=== PATIENT | male | born 1965 | race Caucasian/White ===

== ENCOUNTER 2019-10-20 20:16 | Inpatient (IN) | payer MEDICAID ==
[~2019-10-20] VITALS: Ht 167.6 cm; Wt 79.4 kg
[2019-10-20] MEDS ORDERED: IBUPROFEN 600MG TABLET PO ONE (21:45)
[2019-10-20 23:42] LABS: BASOPHILS % 1.2 % (0.0-2.0); EOSINOPHILS % 5.5 % (0.0-5.0); HEMATOCRIT. 32.2 % (42.0-52.0); HEMOGLOBIN. 10.7 g/dL (14.0-18.0); LYMPHOCYTES % 16.2 % (20.0-50.0); MEAN CORPUSCULAR HEMOGLOBIN 27.8 pg (28.0-32.0); MEAN CORPUSCULAR VOLUME 84.1 fL (80.0-94.0); MEAN PLATELET VOLUME 8.4 fl (7.4-10.4); MONOCYTES % 8.7 % (2.0-8.0); NEUTROPHILS % 68.4 % (40.0-76.0); PLATELET 307 x1000/uL (130-400); RED BLOOD CELL COUNT 3.83 mill/uL (4.7-6.1); RED CELL DISTRIBUTION WIDTH 17.4 % (11.6-14.6)
[2019-10-20 23:47] LABS: CHLORIDE 109 mEq/L (98-107)
[2019-10-20 23:51] LABS: ETHANOL BLOOD < 10 mg/dL
[2019-10-21] MEDS ORDERED: CALCIUM CHLORIDE 1GM/10ML SYR IV SCH (00:15)
[2019-10-21] MEDS ORDERED: SODIUM POLYSTYRENE SULFONATE 15 G/60 ML BOT PO SCH (00:15)
[2019-10-21] MEDS ORDERED: INSULIN REGULAR (HUMULIN R) 300UNITS/3ML IV SCH (00:15)
[2019-10-21] MEDS ORDERED: DEXTROSE 50% WATER 50ML SYRINGE IV SCH ×2 (00:15)
[2019-10-21] MEDS ORDERED: DEXT 5%/0.9% NACL 1,000 ML IV ONE (00:45)
[2019-10-21] MEDS: SODIUM BICARBONATE 8.4% 1 MEQ/ML 50ML SYR IV SCH ×2 (00:46→00:47)
[2019-10-21 01:12] LABS: *AMPHETAMINES SCREEN URINE NEGATIVE (NEGATIVE); *BARBITURATES SCREEN URINE NEGATIVE (NEGATIVE); *BENZODIAZEPINES SCREEN URINE PRESUMTIVE POSITIVE (NEGATIVE); *COCAINE SCREEN URINE NEGATIVE (NEGATIVE)
[2019-10-21 01:13] LABS: CANNABINOID URINE SCREEN NEGATIVE (NEGATIVE); METHADONE URINE SCREEN NEGATIVE (NEGATIVE); OPIATES URINE SCREEN NEGATIVE (NEGATIVE); PHENCYCLIDINE URINE SCREEN NEGATIVE (NEGATIVE)
[2019-10-21] MEDS ORDERED: METOCLOPRAMIDE HCL 10MG/2ML VIAL IV PRN (08:45)
[2019-10-21] MEDS ORDERED: ACETAMINOPHEN 325MG TABLET PO PRN (08:45)
[2019-10-21 08:58] LABS: CHLORIDE 112 mEq/L (98-107)
[2019-10-21] MEDS ORDERED: AZITHROMYCIN 500 MG TABLET PO NR (09:45)
[2019-10-21] MEDS: ASPIRIN 81MG TABLET PO SCH (09:52)
[2019-10-21] MEDS: AMLODIPINE 5MG TABLET PO SCH ×2 (09:52→21:41)
[2019-10-21] MEDS: ENOXAPARIN 30MG/0.3ML SYR SUBCUT SCH (11:00)
[2019-10-21] MEDS ORDERED: DEXTROSE 50% WATER 50ML SYRINGE IV STA ×2 (11:04)
[2019-10-21] MEDS: DEXT 5%/0.45% NACL 1000ML 1,000 ML IV SCH (11:10)
[2019-10-21] MEDS ORDERED: DEXT 10%/0.45% NACL 1,000 ML IV ONE (11:30)
[2019-10-21] MEDS: BENZONATATE 100MG CAPSULE PO PRN (11:51)
[2019-10-21 15:15] VITALS: BP 171/87
[2019-10-21] MEDS: DEXTROSE 10% WATER 500 ML IV SCH (16:00)
[2019-10-21] MEDS: CLONIDINE 0.1MG TABLET PO PRN (16:18)
[2019-10-21] MEDS: THIAMINE HCL 100MG TABLET PO SCH (17:59)
[2019-10-21] MEDS ORDERED: ALBUTEROL 6.7GM HFA INHALER ORI PRN (18:00)
[2019-10-21] MEDS ORDERED: SODIUM POLYSTYRENE SULFONATE 15 G/60 ML BOT PO NR (18:00)
[2019-10-21] MEDS ORDERED: GUAIFENESIN-DM 200MG-20MG/10ML UDC PO PRN (18:00)
[2019-10-21 20:00] VITALS: BP 158/101
[2019-10-21] MEDS: CEFTRIAXONE 1 G PREMIX 50 ML IV SCH (21:40)
[2019-10-21] MEDS: GUAIFENESIN 600MG ER TABLET PO SCH (21:41)
[2019-10-21] MEDS: ASCORBIC ACID 500 MG TABLET PO SCH (21:41)
[2019-10-21] MEDS: HYDRALAZINE HCL 50MG TABLET PO SCH (22:04)
[2019-10-22] VITALS: BP 153/75
[2019-10-22] MEDS: IPRATROPIUM/ALBUTEROL 0.5-3(2.5)MG/3ML NEB HHN SCH (01:59)
[2019-10-22] MEDS: DEXTROSE 10% WATER 500 ML IV SCH ×2 (03:02→12:00)
[2019-10-22] MEDS: DEXT 5%/0.45% NACL 1000ML 1,000 ML IV SCH (03:09)
[2019-10-22 04:00] VITALS: BP 154/67
[2019-10-22] MEDS: BENZONATATE 100MG CAPSULE PO PRN (05:40)
[2019-10-22] MEDS: HYDRALAZINE HCL 50MG TABLET PO SCH (05:45)
[2019-10-22] MEDS: BLOOD SUGAR DIAGNOSTIC STRIP TEST SCH ×4 (06:29→21:03)
[2019-10-22 08:00] VITALS: BP 152/75
[2019-10-22] MEDS ORDERED: AZITHROMYCIN 500 MG TABLET PO SCH (09:00)
[2019-10-22] MEDS ORDERED: ZINC SULFATE 220 MG ( 50 ) CAPSULE PO SCH (09:00)
[2019-10-22] MEDS: THIAMINE HCL 100MG TABLET PO SCH (09:30)
[2019-10-22] MEDS: ENOXAPARIN 30MG/0.3ML SYR SUBCUT SCH (09:30)
[2019-10-22] MEDS: ASPIRIN 81MG TABLET PO SCH (09:30)
[2019-10-22] MEDS: AZITHROMYCIN 250 MG TABLET PO SCH (09:31)
[2019-10-22] MEDS: AMLODIPINE 5MG TABLET PO SCH ×2 (09:31→20:55)
[2019-10-22] MEDS: ASCORBIC ACID 500 MG TABLET PO SCH (09:31)
[2019-10-22] MEDS: GUAIFENESIN 600MG ER TABLET PO SCH ×2 (09:32→20:54)
[2019-10-22] MEDS: HYDRALAZINE HCL 100MG TABLET PO SCH ×2 (14:58→22:22)
[2019-10-22] MEDS ORDERED: IPRATROPIUM/ALBUTEROL 0.5-3(2.5)MG/3ML NEB HHN PRN (15:30)
[2019-10-22 15:40] LABS: EOSINOPHILS % 8.4 % (0.0-5.0); HEMOGLOBIN. 10.2 g/dL (14.0-18.0); LYMPHOCYTES % 16.7 % (20.0-50.0); MEAN CORPUSCULAR HEMOGLOBIN 27.8 pg (28.0-32.0); MEAN CORPUSCULAR VOLUME 84.6 fL (80.0-94.0); MONOCYTES % 9.7 % (2.0-8.0); NEUTROPHILS % 64.2 % (40.0-76.0); PLATELET 243 x1000/uL (130-400); RED BLOOD CELL COUNT 3.67 mill/uL (4.7-6.1); RED CELL DISTRIBUTION WIDTH 17.9 % (11.6-14.6)
[2019-10-22] MEDS ORDERED: ALBU18HF2 IH (15:57)
[2019-10-22] MEDS ORDERED: HYDR100T26 PO (15:57)
[2019-10-22] MEDS ORDERED: BENZ-16 MT (15:57)
[2019-10-22] MEDS ORDERED: AMLO5TAB88 PO (15:57)
[2019-10-22 16:00] VITALS: BP 176/84
[2019-10-22] MEDS: CLONIDINE 0.1MG TABLET PO PRN (17:05)
[2019-10-22 18:30] VITALS: BP 150/78
[2019-10-22 20:00] VITALS: BP 157/82
[2019-10-22] MEDS: CEFTRIAXONE 1 G PREMIX 50 ML IV SCH (22:14)
[2019-10-23] VITALS: BP 159/81
[2019-10-23] MEDS: DEXTROSE 10% WATER 500 ML IV SCH ×2 (00:13→08:00)
[2019-10-23 04:00] VITALS: BP 121/76
[2019-10-23] MEDS: HYDRALAZINE HCL 100MG TABLET PO SCH ×2 (05:32→13:00)
[2019-10-23] MEDS: DEXT 5%/0.45% NACL 1000ML 1,000 ML IV SCH (06:35)
[2019-10-23] MEDS: BLOOD SUGAR DIAGNOSTIC STRIP TEST SCH ×3 (06:35→17:11)
[2019-10-23 08:00] VITALS: BP 147/80
[2019-10-23] MEDS: AMLODIPINE 5MG TABLET PO SCH (09:20)
[2019-10-23] MEDS: ASPIRIN 81MG TABLET PO SCH (09:20)
[2019-10-23] MEDS: GUAIFENESIN 600MG ER TABLET PO SCH (09:20)
[2019-10-23] MEDS: ENOXAPARIN 30MG/0.3ML SYR SUBCUT SCH (09:21)
[2019-10-23] MEDS: AZITHROMYCIN 250 MG TABLET PO SCH (09:21)
[2019-10-23] MEDS: IPRATROPIUM/ALBUTEROL 0.5-3(2.5)MG/3ML NEB HHN SCH ×2 (09:44→15:56)
[2019-10-23 12:00] VITALS: BP 164/87
[2019-10-23 16:00] VITALS: BP 135/70
[2019-10-23 17:12] VITALS: BP 135/71
== END 2019-10-23 17:31 | disposition home or self-care (01) | DRG 720 ==
LOC: ER 20:16 → 7WST 10-21 00:47 → EDBEDREQSVC 10-21 09:01 → ENRESERV 10-21 13:35 → 6EST 10-22 14:13
PROVIDERS: ADMIT Internal Medicine; ATTEND Internal Medicine
DX: A41.89 Other specified sepsis (principal); J96.00 Acute respiratory failure, unspecified whether with hypoxia or hypercapnia; N17.9 Acute kidney failure, unspecified; E11.22 Type 2 diabetes mellitus with diabetic chronic kidney disease; E11.649 Type 2 diabetes mellitus with hypoglycemia without coma; E44.1 Mild protein-calorie malnutrition; E87.8 Other disorders of electrolyte and fluid balance, not elsewhere classified; E78.5 Hyperlipidemia, unspecified; J40 Bronchitis, not specified as acute or chronic; N18.9 Chronic kidney disease, unspecified; D64.9 Anemia, unspecified; F10.10 Alcohol abuse, uncomplicated; R74.0 Nonspecific elevation of levels of transaminase and lactic acid dehydrogenase [LDH]; K27.9 Peptic ulcer, site unspecified, unspecified as acute or chronic, without hemorrhage or perforation; I12.9 Hypertensive chronic kidney disease with stage 1 through stage 4 chronic kidney disease, or unspecified chronic kidney disease; E87.5 Hyperkalemia; Z68.28 Body mass index [BMI] 28.0-28.9, adult; Z03.818 Encounter for observation for suspected exposure to other biological agents ruled out; Z86.73 Personal history of transient ischemic attack (TIA), and cerebral infarction without residual deficits
CPT/HCPCS: 36415; 71045; 80048; 80053; 80305; 80320; 82962; 83036; 83880; 84484; 85025; 87635; 87804; 93005; 97162; 99291; J0696; J1650; J1815; J3490; G0480

== ENCOUNTER 2019-11-17 23:00 | Emergency (ER) | payer MEDICAID ==
[~2019-11-17] VITALS: Ht 172.7 cm; Wt 77.0 kg
[~2019-11-17 23:00] MED LIST: ALBU18HF2 IH; AMLO5TAB88 PO; BENZ-16 MT; HYDR100T26 PO
[2019-11-18 05:05] VITALS: BP 157/81
== END 2019-11-18 06:00 | disposition home or self-care (01) ==
LOC: ER 23:00
DX: F10.129 Alcohol abuse with intoxication, unspecified (principal); I10 Essential (primary) hypertension; Y90.8 Blood alcohol level of 240 mg/100 ml or more
CPT/HCPCS: 36415; 80320; 93005; 99285; G0480

== ENCOUNTER 2019-11-27 23:28 | Inpatient (IN) | payer MEDICAID ==
[~2019-11-27] VITALS: Ht 172.7 cm; Wt 76.2 kg
[2019-11-28 00:11] LABS: BASOPHILS % 0.8 % (0.0-2.0); EOSINOPHILS % 0.1 % (0.0-5.0); HEMATOCRIT. 33.5 % (42.0-52.0); HEMOGLOBIN. 11.2 g/dL (14.0-18.0); LYMPHOCYTES % 14.5 % (20.0-50.0); MEAN CORPUSCULAR HEMOGLOBIN 29.1 pg (28.0-32.0); MEAN CORPUSCULAR VOLUME 86.7 fL (80.0-94.0); MEAN PLATELET VOLUME 7.8 fl (7.4-10.4); MONOCYTES % 7.9 % (2.0-8.0); NEUTROPHILS % 76.7 % (40.0-76.0); PLATELET 208 x1000/uL (130-400); RED BLOOD CELL COUNT 3.86 mill/uL (4.7-6.1); RED CELL DISTRIBUTION WIDTH 20.7 % (11.6-14.6)
[2019-11-28 00:16] LABS: CHLORIDE 109 mEq/L (98-107)
[2019-11-28 00:21] LABS: ETHANOL BLOOD 97 mg/dL
[2019-11-28] MEDS ORDERED: DEXTROSE 50% WATER 50ML SYRINGE IV ONE ×2 (01:15→06:15)
[2019-11-28] MEDS ORDERED: ENALAPRIL 2.5MG/2ML VIAL 2ML IV ONE (02:15)
[2019-11-28] MEDS ORDERED: FUROSEMIDE 40MG/4ML VIAL IVP ONE (02:15)
[2019-11-28] MEDS ORDERED: LORAZEPAM 2MG/ML CPJ IV PRN (09:30)
[2019-11-28] MEDS: AMLODIPINE 10MG TABLET PO SCH (10:07)
[2019-11-28] MEDS: FOLIC ACID 1 MG, THIAMINE HCL 100 MG, MVI, ADULT NO.1 10 ML in DEXTROSE 5% WATER 1,000 ML IV NR ×8 (10:41→20:00)
[2019-11-28] MEDS: CLONIDINE 0.2MG TABLET PO PRN (10:49)
[2019-11-28] MEDS ORDERED: ATOR20TA65 (17:17)
[2019-11-28] MEDS ORDERED: GLIP5TAB12 (17:17)
[2019-11-28] MEDS ORDERED: METO100T16 (17:17)
[2019-11-28] MEDS ORDERED: MULT-62 (17:17)
[2019-11-28] MEDS ORDERED: ALLO300T2 (17:17)
[2019-11-28] MEDS ORDERED: SODIUM CHLORIDE 0.45% 1,000 ML IV SCH (20:15)
[2019-11-28] MEDS: HYDRALAZINE HCL 50MG TABLET PO SCH (22:15)
[2019-11-28] MEDS: SODIUM CHLORIDE 0.45% 1,000 ML IV SCH (22:24)
[2019-11-28 22:59] VITALS: BP 165/75
[2019-11-28] MEDS ORDERED: DEXTROSE 50% WATER 50ML SYRINGE IV PRN (23:00)
[2019-11-28 23:21] VITALS: BP 149/73
[2019-11-29] VITALS: BP 104/82
[2019-11-29 04:00] VITALS: BP_SYST 148; BP_SYST 91; BP_DIAS 72; BP_DIAS 82
[2019-11-29] MEDS: BLOOD SUGAR DIAGNOSTIC STRIP TEST SCH ×4 (07:37→20:40)
[2019-11-29 08:00] VITALS: BP 189/99
[2019-11-29 08:16] LABS: BASOPHILS % 1.3 % (0.0-2.0); EOSINOPHILS % 8.2 % (0.0-5.0); HEMATOCRIT. 32.2 % (42.0-52.0); HEMOGLOBIN. 10.9 g/dL (14.0-18.0); LYMPHOCYTES % 18.8 % (20.0-50.0); MEAN CORPUSCULAR HEMOGLOBIN 29.3 pg (28.0-32.0); MEAN CORPUSCULAR VOLUME 86.5 fL (80.0-94.0); MEAN PLATELET VOLUME 8.1 fl (7.4-10.4); MONOCYTES % 11.5 % (2.0-8.0); NEUTROPHILS % 60.2 % (40.0-76.0); PLATELET 190 x1000/uL (130-400); RED BLOOD CELL COUNT 3.72 mill/uL (4.7-6.1); RED CELL DISTRIBUTION WIDTH 20.6 % (11.6-14.6)
[2019-11-29] MEDS: HYDRALAZINE HCL 50MG TABLET PO SCH ×2 (09:25→20:48)
[2019-11-29] MEDS: ASPIRIN 81MG TABLET PO SCH (09:25)
[2019-11-29] MEDS: AMLODIPINE 10MG TABLET PO SCH (09:26)
[2019-11-29 10:08] LABS: *AMPHETAMINES SCREEN URINE NEGATIVE (NEGATIVE); *BARBITURATES SCREEN URINE NEGATIVE (NEGATIVE); *BENZODIAZEPINES SCREEN URINE NEGATIVE (NEGATIVE); *COCAINE SCREEN URINE NEGATIVE (NEGATIVE); METHADONE URINE SCREEN NEGATIVE (NEGATIVE); OPIATES URINE SCREEN NEGATIVE (NEGATIVE); PHENCYCLIDINE URINE SCREEN NEGATIVE (NEGATIVE)
[2019-11-29 10:09] LABS: CANNABINOID URINE SCREEN NEGATIVE (NEGATIVE)
[2019-11-29 12:00] VITALS: BP 164/90
[2019-11-29] MEDS: SODIUM CHLORIDE 0.45% 1,000 ML IV SCH (12:37)
[2019-11-29] MEDS: CLONIDINE 0.2MG TABLET PO PRN (13:03)
[2019-11-29 16:00] VITALS: BP 154/87
[2019-11-29 20:00] VITALS: BP 145/82
[2019-11-30] VITALS: BP 152/75
[2019-11-30 04:00] VITALS: BP 170/79
[2019-11-30] MEDS: CLONIDINE 0.2MG TABLET PO PRN (05:22)
[2019-11-30] MEDS: BLOOD SUGAR DIAGNOSTIC STRIP TEST SCH ×2 (05:52→12:12)
[2019-11-30 06:36] VITALS: BP 153/84
[2019-11-30 08:00] VITALS: BP 170/86
[2019-11-30] MEDS: AMLODIPINE 10MG TABLET PO SCH (08:55)
[2019-11-30] MEDS: ASPIRIN 81MG TABLET PO SCH (08:55)
[2019-11-30] MEDS ORDERED: HYDRALAZINE HCL 100MG TABLET PO SCH (09:00)
[2019-11-30] MEDS ORDERED: AMLO10TA80 MT (11:28)
[2019-11-30] MEDS ORDERED: LOSA50TA41 MT (11:28)
[2019-11-30] MEDS ORDERED: HYDR100T26 MT (11:28)
[2019-11-30] MEDS ORDERED: THIA100T88 MT (11:28)
[2019-11-30 12:00] VITALS: BP 139/75
[2019-11-30 15:19] VITALS: BP 110/84
== END 2019-11-30 16:30 | disposition home or self-care (01) | DRG 203 ==
LOC: ER 23:28 → MICUSO 11-28 01:20 → 5WST 11-28 21:51
PROVIDERS: ADMIT Internal Medicine; ATTEND Internal Medicine
DX: M94.0 Chondrocostal junction syndrome [Tietze] (principal); N17.9 Acute kidney failure, unspecified; E11.22 Type 2 diabetes mellitus with diabetic chronic kidney disease; E11.649 Type 2 diabetes mellitus with hypoglycemia without coma; R07.89 Other chest pain; E87.8 Other disorders of electrolyte and fluid balance, not elsewhere classified; E44.1 Mild protein-calorie malnutrition; T38.3X5A Adverse effect of insulin and oral hypoglycemic [antidiabetic] drugs, initial encounter; I12.9 Hypertensive chronic kidney disease with stage 1 through stage 4 chronic kidney disease, or unspecified chronic kidney disease; F17.210 Nicotine dependence, cigarettes, uncomplicated; F10.129 Alcohol abuse with intoxication, unspecified; E78.5 Hyperlipidemia, unspecified; D64.9 Anemia, unspecified; Y90.9 Presence of alcohol in blood, level not specified; N18.2 Chronic kidney disease, stage 2 (mild); J44.9 Chronic obstructive pulmonary disease, unspecified; Z79.899 Other long term (current) drug therapy; Z87.11 Personal history of peptic ulcer disease; Z68.25 Body mass index [BMI] 25.0-25.9, adult; Z71.41 Alcohol abuse counseling and surveillance of alcoholic; Z71.6 Tobacco abuse counseling
CPT/HCPCS: 36415; 71045; 80048; 80053; 80305; 80320; 82962; 83036; 83880; 84484; 85025; 93005; 93306; 96374; 99285; J1940; J3411; J3490; J7070; G0480

== ENCOUNTER 2019-12-06 22:14 | Inpatient (IN) | payer MEDICAID ==
[~2019-12-06] VITALS: Ht 165.1 cm; Wt 85.8 kg
[~2019-12-06 22:14] MED LIST changes: +ALLO300T2; +AMLO10TA80 MT; +ATOR20TA65; +HYDR100T26 MT; +LOSA50TA41 MT; +MULT-62; +THIA100T88 MT
[2019-12-06] MEDS ORDERED: SODIUM CHLORIDE 0.9% 1,000 ML IV ONE (22:34)
[2019-12-06 23:09] LABS: BASOPHILS % 2.9 % (0.0-2.0); HEMATOCRIT. 32.4 % (42.0-52.0); MEAN CORPUSCULAR HEMOGLOBIN 29.3 pg (28.0-32.0); MEAN CORPUSCULAR VOLUME 86.6 fL (80.0-94.0); MEAN PLATELET VOLUME 7.4 fl (7.4-10.4); MONOCYTES % 5.1 % (2.0-8.0); PLATELET 343 x1000/uL (130-400); RED BLOOD CELL COUNT 3.74 mill/uL (4.7-6.1); RED CELL DISTRIBUTION WIDTH 19.6 % (11.6-14.6)
[2019-12-06 23:14] LABS: CHLORIDE 108 mEq/L (98-107)
[2019-12-06 23:31] LABS: ETHANOL BLOOD 348 mg/dL
[2019-12-07 00:02] LABS: CREATINE KINASE 534 IU/L (39-308)
[2019-12-07] MEDS ORDERED: SODIUM CHLORIDE 0.9% 1,000 ML IV ONE (02:39)
[2019-12-07] MEDS ORDERED: ONDANSETRON HCL 4MG/2ML INJ IV PRN (08:45)
[2019-12-07] MEDS: FOLIC ACID 1 MG, THIAMINE HCL 100 MG, MVI, ADULT NO.1 10 ML in DEXTROSE 5% WATER 1,000 ML IV SCH ×4 (11:19)
[2019-12-07 13:42] LABS: CLARITY URINE CLEAR (CLEAR); COLOR URINE YELLOW (YELLOW); KETONES URINE NEGATIVE (NEGATIVE); LEUKOCYTE ESTERASE URINE NEGATIVE (NEGATIVE); NITRITE URINE NEGATIVE (NEGATIVE); OCCULT BLOOD URINE NEGATIVE (NEGATIVE); PROTEIN URINE 3+ (NEGATIVE); SPECIFIC GRAVITY URINE 1.012 (1.005-1.030); UROBILINOGEN URINE 0.2 E.U./dL (0.2-1.0)
[2019-12-07] MEDS: CHLORDIAZEPOXIDE 25MG CAPSULE PO SCH (14:00)
[2019-12-07] MEDS ORDERED: LORAZEPAM 2MG/ML CPJ IV PRN (18:30)
[2019-12-07] MEDS ORDERED: CLONIDINE 0.2MG TABLET PO NR (22:30)
[2019-12-07 23:09] VITALS: BP 183/87
[2019-12-08] VITALS: BP_SYST 158; BP_SYST 170; BP_SYST 171; BP_SYST 183; BP_DIAS 82; BP_DIAS 87
[2019-12-08] MEDS: CHLORDIAZEPOXIDE 25MG CAPSULE PO SCH ×4 (02:51→21:20)
[2019-12-08 04:00] VITALS: BP 165/91
[2019-12-08 08:00] VITALS: BP 153/76
[2019-12-08] MEDS: FOLIC ACID 1 MG, THIAMINE HCL 100 MG, MVI, ADULT NO.1 10 ML in DEXTROSE 5% WATER 1,000 ML IV SCH ×4 (09:00)
[2019-12-08 12:00] VITALS: BP 162/84
[2019-12-08] MEDS: HYDRALAZINE HCL 100MG TABLET PO SCH ×2 (14:55→21:20)
[2019-12-08 16:00] VITALS: BP 163/88
[2019-12-08 16:07] LABS: INR 0.9; PROTHROMBIN TIME 10.2 sec (9.6-11.0)
[2019-12-08 20:00] VITALS: BP 177/88
[2019-12-09] VITALS (7 sets, daily range): BP systolic 133–174; BP diastolic 84–93
[2019-12-09] MEDS: CLONIDINE 0.1MG TABLET PO PRN ×2 (00:49→22:12)
[2019-12-09] MEDS: CHLORDIAZEPOXIDE 25MG CAPSULE PO SCH ×3 (05:42→22:12)
[2019-12-09] MEDS: HYDRALAZINE HCL 100MG TABLET PO SCH ×3 (05:43→22:13)
[2019-12-09] MEDS: HYDROCODONE/ACETAMINOPHEN 10/325MG TABLET PO PRN ×5 (05:48→22:14)
[2019-12-09] MEDS: FOLIC ACID 1 MG, THIAMINE HCL 100 MG, MVI, ADULT NO.1 10 ML in DEXTROSE 5% WATER 1,000 ML IV SCH ×4 (08:40)
[2019-12-10] VITALS (7 sets, daily range): BP systolic 112–167; BP diastolic 73–88
[2019-12-10] MEDS: HYDRALAZINE HCL 100MG TABLET PO SCH ×2 (06:34→13:46)
[2019-12-10] MEDS: CHLORDIAZEPOXIDE 25MG CAPSULE PO SCH ×2 (06:34→13:46)
[2019-12-10] MEDS: CLONIDINE 0.1MG TABLET PO PRN (06:41)
[2019-12-10] MEDS: FOLIC ACID 1 MG, THIAMINE HCL 100 MG, MVI, ADULT NO.1 10 ML in DEXTROSE 5% WATER 1,000 ML IV SCH ×4 (08:29)
[2019-12-10] MEDS: HYDROCODONE/ACETAMINOPHEN 10/325MG TABLET PO PRN (11:45)
== END 2019-12-10 14:30 | disposition home or self-care (01) | DRG 48 ==
LOC: ER 22:14 → EDBEDREQDT 12-07 00:19 → EDBEDREQ 12-07 00:19 → EDBEDREQTM 12-07 00:19 → EDBEDREQSVC 12-07 13:24 → ENRESERV 12-07 20:40 → 5WST 12-07 21:57
PROVIDERS: ADMIT Internal Medicine; ATTEND Internal Medicine
DX: G90.8 Other disorders of autonomic nervous system (principal); N17.9 Acute kidney failure, unspecified; E11.22 Type 2 diabetes mellitus with diabetic chronic kidney disease; E44.1 Mild protein-calorie malnutrition; E87.8 Other disorders of electrolyte and fluid balance, not elsewhere classified; M48.02 Spinal stenosis, cervical region; F10.129 Alcohol abuse with intoxication, unspecified; N18.9 Chronic kidney disease, unspecified; D64.9 Anemia, unspecified; M48.061 Spinal stenosis, lumbar region without neurogenic claudication; F17.210 Nicotine dependence, cigarettes, uncomplicated; G82.20 Paraplegia, unspecified; I12.9 Hypertensive chronic kidney disease with stage 1 through stage 4 chronic kidney disease, or unspecified chronic kidney disease; M47.9 Spondylosis, unspecified; Y90.8 Blood alcohol level of 240 mg/100 ml or more; Z71.41 Alcohol abuse counseling and surveillance of alcoholic; Z68.31 Body mass index [BMI] 31.0-31.9, adult; Z71.6 Tobacco abuse counseling; I69.354 Hemiplegia and hemiparesis following cerebral infarction affecting left non-dominant side
CPT/HCPCS: 36415; 72141; 72148; 80048; 80053; 80320; 82550; 85025; 96361; 97116; 97162; 99285; J3411; J3490; J7030; J7070; G0480

== ENCOUNTER 2019-12-17 19:48 | Inpatient (IN) | payer MEDICAID ==
[~2019-12-17] VITALS: Ht 172.7 cm; Wt 80.7 kg
[2019-12-17] MEDS ORDERED: SODIUM CHLORIDE 0.9% 1,000 ML IV ONE (20:28)
[2019-12-17] MEDS ORDERED: GLUCAGON,HUMAN RECOMBINANT 1MG/VIAL IM ONE (20:30)
[2019-12-17] MEDS ORDERED: FOLIC ACID 1 MG, THIAMINE HCL 100 MG, MVI, ADULT NO.1 10 ML in DEXTROSE 5% WATER 1,000 ML IV ONE ×4 (20:30)
[2019-12-17] MEDS ORDERED: DEXTROSE 50% WATER 50ML SYRINGE IV ONE (20:30)
[2019-12-17] MEDS ORDERED: HYDRALAZINE 20MG/ML VIAL IV ONE (20:45)
[2019-12-17 21:10] LABS: HEMATOCRIT. 36.8 % (42.0-52.0); HEMOGLOBIN. 12.1 g/dL (14.0-18.0); MEAN CORPUSCULAR HEMOGLOBIN 28.8 pg (28.0-32.0); MEAN CORPUSCULAR VOLUME 87.8 fL (80.0-94.0); MEAN PLATELET VOLUME 7.8 fl (7.4-10.4); PLATELET 262 x1000/uL (130-400); RED BLOOD CELL COUNT 4.19 mill/uL (4.7-6.1); RED CELL DISTRIBUTION WIDTH 18.4 % (11.6-14.6)
[2019-12-17 21:17] LABS: CHLORIDE 110 mEq/L (98-107)
[2019-12-17 21:21] LABS: ETHANOL BLOOD < 10 mg/dL
[2019-12-17 21:54] LABS: PLATELET ESTIMATE NORMAL
[2019-12-17 22:06] LABS: INR 0.9; PROTHROMBIN TIME 9.7 sec (9.6-11.0)
[2019-12-17] MEDS ORDERED: SODIUM BICARBONATE 8.4% 1 MEQ/ML 50ML SYR IV ONE (22:30)
[2019-12-17] MEDS ORDERED: ALBUTEROL (0.083%) 2.5MG/3ML NEB HHN ONE (22:30)
[2019-12-17] MEDS ORDERED: LACTULOSE 20G/30ML UDC PO ONE (22:30)
[2019-12-17] MEDS ORDERED: SODIUM POLYSTYRENE SULFONATE 15 G/60 ML BOT PO ONE (22:30)
[2019-12-17 22:46] LABS: CLARITY URINE CLEAR (CLEAR); COLOR URINE YELLOW (YELLOW); KETONES URINE NEGATIVE (NEGATIVE); LEUKOCYTE ESTERASE URINE NEGATIVE (NEGATIVE); NITRITE URINE NEGATIVE (NEGATIVE); OCCULT BLOOD URINE 3+ (NEGATIVE); PROTEIN URINE 3+ (NEGATIVE); SPECIFIC GRAVITY URINE 1.017 (1.005-1.030); UROBILINOGEN URINE 0.2 E.U./dL (0.2-1.0)
[2019-12-17 22:59] LABS: *AMPHETAMINES SCREEN URINE NEGATIVE (NEGATIVE); *BARBITURATES SCREEN URINE NEGATIVE (NEGATIVE); *BENZODIAZEPINES SCREEN URINE PRESUMTIVE POSITIVE (NEGATIVE); *COCAINE SCREEN URINE NEGATIVE (NEGATIVE)
[2019-12-17 23:00] LABS: CANNABINOID URINE SCREEN NEGATIVE (NEGATIVE); METHADONE URINE SCREEN NEGATIVE (NEGATIVE); OPIATES URINE SCREEN NEGATIVE (NEGATIVE); PHENCYCLIDINE URINE SCREEN NEGATIVE (NEGATIVE)
[2019-12-18] VITALS: BP 106/79
[2019-12-18 04:00] VITALS: BP 137/91
[2019-12-18] MEDS ORDERED: DEXTROSE 50% WATER 50ML SYRINGE IV PRN (04:00)
[2019-12-18] MEDS: BLOOD SUGAR DIAGNOSTIC STRIP TEST SCH ×4 (06:24→21:24)
[2019-12-18 06:33] LABS: BASOPHILS % 0.8 % (0.0-2.0); HEMATOCRIT. 26.8 % (42.0-52.0); HEMOGLOBIN. 9.1 g/dL (14.0-18.0); LYMPHOCYTES % 8.5 % (20.0-50.0); MEAN CORPUSCULAR HEMOGLOBIN 29.3 pg (28.0-32.0); MEAN CORPUSCULAR VOLUME 86.8 fL (80.0-94.0); MONOCYTES % 3.2 % (2.0-8.0); NEUTROPHILS % 87.5 % (40.0-76.0); PLATELET 193 x1000/uL (130-400); RED BLOOD CELL COUNT 3.09 mill/uL (4.7-6.1); RED CELL DISTRIBUTION WIDTH 18.4 % (11.6-14.6)
[2019-12-18] MEDS ORDERED: INSULIN LISPRO 100 UNITS/ML SUBCUT SCH (07:15)
[2019-12-18 08:00] VITALS: BP 163/87
[2019-12-18] MEDS ORDERED: ALBUTEROL (0.083%) 2.5MG/3ML NEB HHN PRN (08:30)
[2019-12-18] MEDS ORDERED: LOSARTAN POTASSIUM 50 MG TABLET PO SCH (09:00)
[2019-12-18] MEDS: AMLODIPINE 10MG TABLET PO SCH (09:33)
[2019-12-18] MEDS: LACTULOSE 20G/30ML UDC PO SCH ×3 (09:33→21:27)
[2019-12-18] MEDS: FOLIC ACID 1 MG, THIAMINE HCL 100 MG, MVI, ADULT NO.1 10 ML in DEXTROSE 5% WATER 1,000 ML IV SCH ×4 (11:14)
[2019-12-18 12:00] VITALS: BP 139/71
[2019-12-18] MEDS: HYDRALAZINE HCL 50MG TABLET PO SCH ×2 (13:40→21:27)
[2019-12-18 16:00] VITALS: BP 135/75
[2019-12-18] MEDS: ACETAMINOPHEN 325MG TABLET PO PRN (17:54)
[2019-12-18 20:00] VITALS: BP 156/77
[2019-12-19] VITALS: BP 145/72
[2019-12-19] MEDS: ACETAMINOPHEN 325MG TABLET PO PRN ×3 (00:34→12:06)
[2019-12-19 04:00] VITALS: BP 150/63
[2019-12-19] MEDS: LACTULOSE 20G/30ML UDC PO SCH ×3 (05:00→21:38)
[2019-12-19] MEDS: HYDRALAZINE HCL 50MG TABLET PO SCH ×3 (05:00→21:38)
[2019-12-19] MEDS: BLOOD SUGAR DIAGNOSTIC STRIP TEST SCH ×4 (06:01→20:24)
[2019-12-19 08:00] VITALS: BP 133/78
[2019-12-19] MEDS: AMLODIPINE 10MG TABLET PO SCH (08:43)
[2019-12-19] MEDS: FOLIC ACID 1 MG, THIAMINE HCL 100 MG, MVI, ADULT NO.1 10 ML in DEXTROSE 5% WATER 1,000 ML IV SCH ×4 (08:44)
[2019-12-19] MEDS ORDERED: CEFEPIME 1,000 MG in DEXTROSE 5% WATER 50 ML IV SCH (10:45)
[2019-12-19] MEDS: CEFEPIME 1,000 MG in DEXTROSE 5% WATER 50 ML IV SCH (11:00)
[2019-12-19] MEDS: METRONIDAZOLE 500 MG PREMIX 100 ML IV SCH ×2 (11:01→20:24)
[2019-12-19 12:00] VITALS: BP 146/87
[2019-12-19 16:00] VITALS: BP 136/81
[2019-12-19 19:13] LABS: BASOPHILS % 0.7 % (0.0-2.0); EOSINOPHILS % 6.6 % (0.0-5.0); HEMOGLOBIN. 10.6 g/dL (14.0-18.0); LYMPHOCYTES % 12.1 % (20.0-50.0); MEAN CORPUSCULAR HEMOGLOBIN 29.1 pg (28.0-32.0); MEAN PLATELET VOLUME 7.7 fl (7.4-10.4); MONOCYTES % 8.2 % (2.0-8.0); NEUTROPHILS % 72.4 % (40.0-76.0); PLATELET 196 x1000/uL (130-400); RED BLOOD CELL COUNT 3.63 mill/uL (4.7-6.1); RED CELL DISTRIBUTION WIDTH 18.2 % (11.6-14.6)
[2019-12-19 20:00] VITALS: BP 149/80
[2019-12-20] VITALS: BP 120/80
[2019-12-20 04:00] VITALS: BP 145/84
[2019-12-20] MEDS: METRONIDAZOLE 500 MG PREMIX 100 ML IV SCH ×2 (04:22→12:19)
[2019-12-20] MEDS: BLOOD SUGAR DIAGNOSTIC STRIP TEST SCH ×3 (06:17→16:45)
[2019-12-20] MEDS: LACTULOSE 20G/30ML UDC PO SCH ×2 (06:28→13:12)
[2019-12-20] MEDS: HYDRALAZINE HCL 50MG TABLET PO SCH ×2 (06:29→13:12)
[2019-12-20 07:30] LABS: BASOPHILS % 0.5 % (0.0-2.0); EOSINOPHILS % 6.7 % (0.0-5.0); HEMOGLOBIN. 9.7 g/dL (14.0-18.0); LYMPHOCYTES % 10.1 % (20.0-50.0); MEAN CORPUSCULAR HEMOGLOBIN 28.8 pg (28.0-32.0); MEAN CORPUSCULAR VOLUME 92.3 fL (80.0-94.0); MEAN PLATELET VOLUME 7.8 fl (7.4-10.4); MONOCYTES % 7.3 % (2.0-8.0); NEUTROPHILS % 75.4 % (40.0-76.0); PLATELET 177 x1000/uL (130-400); RED BLOOD CELL COUNT 3.36 mill/uL (4.7-6.1); RED CELL DISTRIBUTION WIDTH 18.8 % (11.6-14.6)
[2019-12-20 08:00] VITALS: BP 143/79
[2019-12-20] MEDS: AMLODIPINE 10MG TABLET PO SCH (08:41)
[2019-12-20] MEDS: FOLIC ACID 1 MG, THIAMINE HCL 100 MG, MVI, ADULT NO.1 10 ML in DEXTROSE 5% WATER 1,000 ML IV SCH ×4 (09:46)
[2019-12-20 12:00] VITALS: BP 155/84
[2019-12-20] MEDS: CEFEPIME 1,000 MG in DEXTROSE 5% WATER 50 ML IV SCH (12:53)
[2019-12-20] MEDS ORDERED: LEVO500T2 MT (15:32)
[2019-12-20 16:00] VITALS: BP 142/78
[2019-12-20 16:30] VITALS: BP 155/84
== END 2019-12-20 20:03 | disposition home or self-care (01) | DRG 720 ==
LOC: ER 19:48 → 5WST 22:30 → EDBEDREQ 22:34 → ENRESERV 22:42
PROVIDERS: ADMIT Internal Medicine; ATTEND Internal Medicine
DX: A41.9 Sepsis, unspecified organism (principal); J69.0 Pneumonitis due to inhalation of food and vomit; G93.41 Metabolic encephalopathy; E72.20 Disorder of urea cycle metabolism, unspecified; N17.9 Acute kidney failure, unspecified; E11.22 Type 2 diabetes mellitus with diabetic chronic kidney disease; I12.9 Hypertensive chronic kidney disease with stage 1 through stage 4 chronic kidney disease, or unspecified chronic kidney disease; I16.0 Hypertensive urgency; I25.10 Atherosclerotic heart disease of native coronary artery without angina pectoris; M48.061 Spinal stenosis, lumbar region without neurogenic claudication; N18.9 Chronic kidney disease, unspecified; F17.210 Nicotine dependence, cigarettes, uncomplicated; F10.10 Alcohol abuse, uncomplicated; E87.8 Other disorders of electrolyte and fluid balance, not elsewhere classified; E87.5 Hyperkalemia; D64.9 Anemia, unspecified; E11.649 Type 2 diabetes mellitus with hypoglycemia without coma; M48.02 Spinal stenosis, cervical region; Y90.9 Presence of alcohol in blood, level not specified; E78.5 Hyperlipidemia, unspecified; F15.90 Other stimulant use, unspecified, uncomplicated; I67.82 Cerebral ischemia; K76.0 Fatty (change of) liver, not elsewhere classified; N28.1 Cyst of kidney, acquired; L85.3 Xerosis cutis; Z79.899 Other long term (current) drug therapy; Z71.41 Alcohol abuse counseling and surveillance of alcoholic; Z79.2 Long term (current) use of antibiotics; I69.351 Hemiplegia and hemiparesis following cerebral infarction affecting right dominant side
CPT/HCPCS: 36415; 71045; 76700; 80048; 80053; 80061; 80305; 80320; 81003; 82140; 82962; 83036; 83735; 84145; 84443; 84484; 85025; 93005; 94644; 96374; 99291; J0360; J0692; J1610; J3411; J3490; J7030; J7060; J7070; G0480

== ENCOUNTER 2020-02-05 22:57 | Emergency (ER) | payer MEDICAID ==
[~2020-02-05] VITALS: Ht 165.1 cm; Wt 82.0 kg
[~2020-02-05 22:57] MED LIST changes: +LEVO500T2 MT
[2020-02-05] MEDS ORDERED: SODIUM CHLORIDE 0.9% 1,000 ML IV ONE (23:29)
[2020-02-05 23:50] LABS: BASOPHILS % 1.4 % (0.0-2.0); EOSINOPHILS % 6.5 % (0.0-5.0); HEMATOCRIT. 27.8 % (42.0-52.0); HEMOGLOBIN. 9.4 g/dL (14.0-18.0); LYMPHOCYTES % 19.6 % (20.0-50.0); MEAN CORPUSCULAR HEMOGLOBIN 29.7 pg (28.0-32.0); MEAN CORPUSCULAR VOLUME 87.4 fL (80.0-94.0); MEAN PLATELET VOLUME 7.4 fl (7.4-10.4); MONOCYTES % 6.3 % (2.0-8.0); NEUTROPHILS % 66.2 % (40.0-76.0); PLATELET 270 x1000/uL (130-400); RED BLOOD CELL COUNT 3.19 mill/uL (4.7-6.1); RED CELL DISTRIBUTION WIDTH 14.6 % (11.6-14.6)
[2020-02-06] LABS: CHLORIDE 110 mEq/L (98-107)
[2020-02-06 00:01] LABS: INR 0.9; PARTIAL THROMBOPLASTIN TIME 25.8 sec (23.4-31.0); PROTHROMBIN TIME 9.9 sec (9.6-11.0)
[2020-02-06 00:06] LABS: ETHANOL BLOOD 281 mg/dL
[2020-02-06] MEDS ORDERED: IOHEXOL-300 100 ML BOTTLE ONE (01:06)
[2020-02-06 12:02] VITALS: BP 151/83
== END 2020-02-06 12:20 | disposition home or self-care (01) ==
LOC: ER 22:57
DX: R51 Headache (principal); R10.30 Lower abdominal pain, unspecified; E11.9 Type 2 diabetes mellitus without complications; I10 Essential (primary) hypertension; Z79.899 Other long term (current) drug therapy
CPT/HCPCS: 36415; 70450; 71260; 72125; 74177; 80053; 80320; 83690; 85025; 85610; 85730; 86850; 86900; 86901; 93005; 96360; 99285; J7030; Q9967; G0480

== ENCOUNTER 2020-03-12 17:51 | Emergency (ER) | payer MEDICAID ==
[~2020-03-12] VITALS: Ht 165.1 cm; Wt 72.5 kg
[2020-03-12] MEDS ORDERED: IBUPROFEN 600MG TABLET PO STA (19:25)
[2020-03-12] MEDS ORDERED: BACITRACIN ZINC OINT UDPKT TOP NR (20:30)
[2020-03-12] MEDS ORDERED: AMLODIPINE 10MG TABLET PO ONE (20:30)
[2020-03-13 09:00] VITALS: BP 147/77
== END 2020-03-13 11:05 | disposition home or self-care (01) ==
LOC: ER 17:51
DX: S72.435A Nondisplaced fracture of medial condyle of left femur, initial encounter for closed fracture (principal); S00.81XA Abrasion of other part of head, initial encounter; S00.83XA Contusion of other part of head, initial encounter; E11.9 Type 2 diabetes mellitus without complications; I10 Essential (primary) hypertension; Z59.0 Homelessness; W01.198A Fall on same level from slipping, tripping and stumbling with subsequent striking against other object, initial encounter; Y93.89 Activity, other specified; Y92.488 Other paved roadways as the place of occurrence of the external cause
CPT/HCPCS: 73562; 99285

== ENCOUNTER 2020-04-07 13:28 | Inpatient (IN) | payer MEDICAID ==
[~2020-04-07] VITALS: Ht 165.1 cm; Wt 71.2 kg
[2020-04-07] MEDS ORDERED: SODIUM CHLORIDE 0.9% 1,000 ML IV ONE ×2 (14:30)
[2020-04-07 14:51] LABS: BASOPHILS % 1.4 % (0.0-2.0); EOSINOPHILS % 3.1 % (0.0-5.0); HEMATOCRIT. 32.3 % (42.0-52.0); HEMOGLOBIN. 10.5 g/dL (14.0-18.0); LYMPHOCYTES % 17.1 % (20.0-50.0); MEAN CORPUSCULAR HEMOGLOBIN 27.2 pg (28.0-32.0); MEAN PLATELET VOLUME 8.5 fl (7.4-10.4); MONOCYTES % 3.5 % (2.0-8.0); NEUTROPHILS % 74.9 % (40.0-76.0); PLATELET 271 x1000/uL (130-400); RED BLOOD CELL COUNT 3.85 mill/uL (4.7-6.1); RED CELL DISTRIBUTION WIDTH 16.4 % (11.6-14.6)
[2020-04-07 14:53] LABS: CHLORIDE 111 mEq/L (98-107)
[2020-04-07 15:04] LABS: ETHANOL BLOOD 311 mg/dL
[2020-04-07 15:38] LABS: CLARITY URINE CLEAR (CLEAR); COLOR URINE YELLOW (YELLOW); KETONES URINE NEGATIVE (NEGATIVE); LEUKOCYTE ESTERASE URINE NEGATIVE (NEGATIVE); NITRITE URINE NEGATIVE (NEGATIVE); OCCULT BLOOD URINE TRACE (NEGATIVE); PROTEIN URINE 3+ (NEGATIVE); SPECIFIC GRAVITY URINE 1.014 (1.005-1.030); UROBILINOGEN URINE 0.2 E.U./dL (0.2-1.0)
[2020-04-07 15:53] LABS: *AMPHETAMINES SCREEN URINE NEGATIVE (NEGATIVE); *BARBITURATES SCREEN URINE NEGATIVE (NEGATIVE); *BENZODIAZEPINES SCREEN URINE NEGATIVE (NEGATIVE); *COCAINE SCREEN URINE NEGATIVE (NEGATIVE); METHADONE URINE SCREEN NEGATIVE (NEGATIVE); OPIATES URINE SCREEN NEGATIVE (NEGATIVE)
[2020-04-07 15:54] LABS: CANNABINOID URINE SCREEN NEGATIVE (NEGATIVE); PHENCYCLIDINE URINE SCREEN NEGATIVE (NEGATIVE)
[2020-04-08 01:50] VITALS: BP 211/99
[2020-04-08] MEDS ORDERED: DEXTROSE 50% WATER 50ML SYRINGE IV PRN (02:45)
[2020-04-08] MEDS ORDERED: ONDANSETRON HCL 4MG/2ML INJ IV PRN (02:45)
[2020-04-08] MEDS: CLONIDINE 0.1MG TABLET PO PRN ×2 (02:48→11:24)
[2020-04-08] MEDS: HYDROCODONE/ACETAMINOPHEN 5/325MG TABLET PO PRN ×2 (02:50→17:16)
[2020-04-08 04:00] VITALS: BP 152/96
[2020-04-08] MEDS ORDERED: PNEUMOCOCCAL 23-VAL P-SAC VAC 0.5 ML IM ONE (06:00)
[2020-04-08] MEDS: BLOOD SUGAR DIAGNOSTIC STRIP TEST SCH ×4 (06:20→21:01)
[2020-04-08] MEDS: INSULIN LISPRO 100 UNITS/ML SUBCUT SCH ×4 (06:50→20:54)
[2020-04-08 08:14] VITALS: BP 182/102
[2020-04-08] MEDS: FAMOTIDINE 20MG TABLET PO SCH (08:16)
[2020-04-08] MEDS: AMLODIPINE 10MG TABLET PO SCH (08:17)
[2020-04-08] MEDS: THIAMINE HCL 100MG TABLET PO SCH (08:17)
[2020-04-08] MEDS: MULTIVITAMINS,THER W-MINERALS TABLET PO SCH (08:17)
[2020-04-08] MEDS: FOLIC ACID 1MG TABLET PO SCH (08:17)
[2020-04-08] MEDS: METOPROLOL TARTRATE 50MG TABLET PO SCH ×2 (08:17→20:53)
[2020-04-08] MEDS ORDERED: FAMOTIDINE 20MG TABLET PO SCH (09:00)
[2020-04-08 12:02] VITALS: BP 124/77
[2020-04-08] MEDS: CHLORDIAZEPOXIDE 25MG CAPSULE PO SCH ×2 (13:16→21:00)
[2020-04-08 16:08] VITALS: BP 178/87
[2020-04-08 20:07] VITALS: BP 147/81
[2020-04-08] MEDS: HYDRALAZINE HCL 50MG TABLET PO SCH (21:00)
[2020-04-09] VITALS (7 sets, daily range): BP systolic 137–186; BP diastolic 81–102
[2020-04-09] MEDS: CHLORDIAZEPOXIDE 25MG CAPSULE PO SCH ×3 (05:05→21:15)
[2020-04-09] MEDS: CLONIDINE 0.1MG TABLET PO PRN (05:05)
[2020-04-09] MEDS: HYDRALAZINE HCL 50MG TABLET PO SCH ×3 (05:05→21:15)
[2020-04-09 06:15] LABS: EOSINOPHILS % 8.2 % (0.0-5.0); HEMATOCRIT. 31.8 % (42.0-52.0); HEMOGLOBIN. 10.2 g/dL (14.0-18.0); LYMPHOCYTES % 15.3 % (20.0-50.0); MEAN CORPUSCULAR HEMOGLOBIN 26.7 pg (28.0-32.0); MEAN CORPUSCULAR VOLUME 83.5 fL (80.0-94.0); MEAN PLATELET VOLUME 8.5 fl (7.4-10.4); NEUTROPHILS % 67.5 % (40.0-76.0); PLATELET 213 x1000/uL (130-400); RED CELL DISTRIBUTION WIDTH 16.3 % (11.6-14.6)
[2020-04-09] MEDS: INSULIN LISPRO 100 UNITS/ML SUBCUT SCH ×4 (06:52→20:52)
[2020-04-09] MEDS: BLOOD SUGAR DIAGNOSTIC STRIP TEST SCH ×4 (07:20→20:52)
[2020-04-09] MEDS: AMLODIPINE 10MG TABLET PO SCH (08:32)
[2020-04-09] MEDS: FAMOTIDINE 20MG TABLET PO SCH (08:32)
[2020-04-09] MEDS: MULTIVITAMINS,THER W-MINERALS TABLET PO SCH (08:32)
[2020-04-09] MEDS: FOLIC ACID 1MG TABLET PO SCH (08:32)
[2020-04-09] MEDS: METOPROLOL TARTRATE 50MG TABLET PO SCH ×2 (08:32→20:52)
[2020-04-09] MEDS: THIAMINE HCL 100MG TABLET PO SCH (08:40)
[2020-04-09] MEDS: HYDROCODONE/ACETAMINOPHEN 5/325MG TABLET PO PRN (08:43)
[2020-04-10] VITALS: BP 147/79
[2020-04-10 04:00] VITALS: BP 177/84
[2020-04-10] MEDS: CHLORDIAZEPOXIDE 25MG CAPSULE PO SCH ×3 (05:48→21:40)
[2020-04-10] MEDS: HYDRALAZINE HCL 50MG TABLET PO SCH ×3 (05:49→21:40)
[2020-04-10] MEDS: BLOOD SUGAR DIAGNOSTIC STRIP TEST SCH ×4 (07:20→20:29)
[2020-04-10] MEDS: INSULIN LISPRO 100 UNITS/ML SUBCUT SCH ×4 (07:27→20:29)
[2020-04-10 08:00] VITALS: BP 136/84
[2020-04-10] MEDS: FOLIC ACID 1MG TABLET PO SCH (08:31)
[2020-04-10] MEDS: FAMOTIDINE 20MG TABLET PO SCH (08:31)
[2020-04-10] MEDS: THIAMINE HCL 100MG TABLET PO SCH (08:31)
[2020-04-10] MEDS: MULTIVITAMINS,THER W-MINERALS TABLET PO SCH (08:31)
[2020-04-10] MEDS: METOPROLOL TARTRATE 50MG TABLET PO SCH ×2 (08:32→20:24)
[2020-04-10] MEDS: AMLODIPINE 10MG TABLET PO SCH (08:32)
[2020-04-10] MEDS ORDERED: AMLO10TA80 PO (11:25)
[2020-04-10] MEDS ORDERED: HYDR-4001 PO (11:25)
[2020-04-10] MEDS ORDERED: HYDR100T26 MT (11:25)
[2020-04-10] MEDS ORDERED: THIA100T72 PO (11:25)
[2020-04-10 12:00] VITALS: BP 152/77
[2020-04-10] MEDS ORDERED: ENOXAPARIN 30MG/0.3ML SYR SUBCUT SCH (12:00)
[2020-04-10 16:00] VITALS: BP 150/85
[2020-04-10 20:00] VITALS: BP 152/68
[2020-04-11] VITALS: BP 130/78
[2020-04-11 04:00] VITALS: BP 148/78
[2020-04-11] MEDS: HYDRALAZINE HCL 50MG TABLET PO SCH (06:20)
[2020-04-11] MEDS: CHLORDIAZEPOXIDE 25MG CAPSULE PO SCH (06:20)
[2020-04-11] MEDS: BLOOD SUGAR DIAGNOSTIC STRIP TEST SCH (06:21)
[2020-04-11] MEDS: INSULIN LISPRO 100 UNITS/ML SUBCUT SCH (07:39)
[2020-04-11 08:00] VITALS: BP_SYST 161; BP_SYST 163; BP_DIAS 91
[2020-04-11] MEDS: AMLODIPINE 10MG TABLET PO SCH (08:48)
[2020-04-11] MEDS: MULTIVITAMINS,THER W-MINERALS TABLET PO SCH (08:48)
[2020-04-11] MEDS: FAMOTIDINE 20MG TABLET PO SCH (08:48)
[2020-04-11] MEDS: METOPROLOL TARTRATE 50MG TABLET PO SCH (08:49)
[2020-04-11] MEDS: THIAMINE HCL 100MG TABLET PO SCH (08:49)
[2020-04-11] MEDS: FOLIC ACID 1MG TABLET PO SCH (08:49)
== END 2020-04-11 11:11 | disposition home or self-care (01) | DRG 775 ==
LOC: ER 13:28 → 6WST 19:19 → EDBEDREQSVC 21:12 → EDBEDREQTM 21:12 → ENRESERV 21:42
PROVIDERS: ADMIT Internal Medicine; ATTEND Internal Medicine
DX: F10.129 Alcohol abuse with intoxication, unspecified (principal); S72.432A Displaced fracture of medial condyle of left femur, initial encounter for closed fracture; D64.9 Anemia, unspecified; E87.8 Other disorders of electrolyte and fluid balance, not elsewhere classified; N18.9 Chronic kidney disease, unspecified; E44.0 Moderate protein-calorie malnutrition; M48.061 Spinal stenosis, lumbar region without neurogenic claudication; I12.9 Hypertensive chronic kidney disease with stage 1 through stage 4 chronic kidney disease, or unspecified chronic kidney disease; M84.750A Atypical femoral fracture, unspecified, initial encounter for fracture; E11.22 Type 2 diabetes mellitus with diabetic chronic kidney disease; Z60.2 Problems related to living alone; G92 Toxic encephalopathy; N17.9 Acute kidney failure, unspecified; Y90.8 Blood alcohol level of 240 mg/100 ml or more; W18.39XA Other fall on same level, initial encounter; Y93.89 Activity, other specified; Y92.89 Other specified places as the place of occurrence of the external cause; Y99.8 Other external cause status; Z79.899 Other long term (current) drug therapy; Z68.26 Body mass index [BMI] 26.0-26.9, adult; Z71.6 Tobacco abuse counseling
CPT/HCPCS: 36415; 73560; 73700; 80048; 80053; 80305; 80320; 81003; 82962; 83036; 85025; 90732; 93005; 97162; 97166; 99285; J1650; J1815; J7030; G0480

== ENCOUNTER 2021-09-13 19:44 | Inpatient (IN) | payer MEDICAID ==
[~2021-09-13] VITALS: Ht 165.1 cm; Wt 47.2 kg
[~2021-09-13 19:44] MED LIST changes: -ALBU18HF2 IH; -ALLO300T2; -AMLO10TA80 MT; +AMLO10TA80 PO; -AMLO5TAB88 PO; -ATOR20TA65; -BENZ-16 MT; +HYDR-4001 PO; -HYDR100T26 PO; -LEVO500T2 MT; -LOSA50TA41 MT; -MULT-62; +THIA100T72 PO; -THIA100T88 MT
[2021-09-13] MEDS ORDERED: IBUPROFEN 600MG TABLET PO ONE (21:15)
[2021-09-13 22:19] LABS: BASOPHILS % 0.2 % (0.0-2.0); LYMPHOCYTES % 13.2 % (20.0-50.0); MEAN PLATELET VOLUME 8.1 fl (7.4-10.4); MONOCYTES % 4.3 % (2.0-8.0); NEUTROPHILS % 82.3 % (40.0-76.0); PLATELET 209 x1000/uL (130-400); RED BLOOD CELL COUNT 2.47 mill/uL (4.7-6.1); RED CELL DISTRIBUTION WIDTH 13.8 % (11.6-14.6)
[2021-09-13 22:24] LABS: CHLORIDE 105 mEq/L (98-107); HEMATOCRIT. 20.3 % (42.0-52.0); HEMOGLOBIN. 6.9 g/dL (14.0-18.0)
[2021-09-13 22:28] LABS: ETHANOL BLOOD 97 mg/dL
[2021-09-13] MEDS ORDERED: SODIUM CHLORIDE 0.9% 1,000 ML IV ONE (23:00)
[2021-09-14] VITALS (10 sets, daily range): BP systolic 120–155; BP diastolic 61–76
[2021-09-14] MEDS ORDERED: IPRATROPIUM/ALBUTEROL 0.5-3(2.5)MG/3ML NEB HHN PRN (00:30)
[2021-09-14] MEDS ORDERED: ONDANSETRON HCL 4MG/2ML INJ IV PRN (00:30)
[2021-09-14] MEDS ORDERED: GUAIFENESIN 200MG/10ML SUGAR FREE UDC PO PRN (00:30)
[2021-09-14 01:01] LABS: TOTAL IRON BINDING CAPACITY 248 ug/dL (250-450)
[2021-09-14] MEDS ORDERED: ACETAMINOPHEN 325MG TABLET PO ONE (02:30)
[2021-09-14 06:31] LABS: BASOPHILS % 0.4 % (0.0-2.0); HEMATOCRIT. 22.8 % (42.0-52.0); HEMOGLOBIN. 7.8 g/dL (14.0-18.0); LYMPHOCYTES % 12.7 % (20.0-50.0); MEAN CORPUSCULAR HEMOGLOBIN 28.5 pg (28.0-32.0); MEAN CORPUSCULAR VOLUME 83.3 fL (80.0-94.0); MEAN PLATELET VOLUME 8.8 fl (7.4-10.4); MONOCYTES % 10.8 % (2.0-8.0); NEUTROPHILS % 76.1 % (40.0-76.0); PLATELET 158 x1000/uL (130-400); RED BLOOD CELL COUNT 2.74 mill/uL (4.7-6.1); RED CELL DISTRIBUTION WIDTH 13.2 % (11.6-14.6)
[2021-09-14 06:45] LABS: PHOSPHORUS 4.6 mg/dL (2.5-4.9)
[2021-09-14] MEDS: ACETAMINOPHEN 325MG TABLET PO PRN (06:45)
[2021-09-14] MEDS ORDERED: SODIUM POLYSTYRENE SULFONATE 15 G/60 ML BOT PO NR (08:00)
[2021-09-14 08:29] LABS: CLARITY URINE CLEAR (CLEAR); COLOR URINE YELLOW (YELLOW); KETONES URINE NEGATIVE (NEGATIVE); LEUKOCYTE ESTERASE URINE NEGATIVE (NEGATIVE); NITRITE URINE NEGATIVE (NEGATIVE); OCCULT BLOOD URINE TRACE (NEGATIVE); PROTEIN URINE 1+ (NEGATIVE); SPECIFIC GRAVITY URINE 1.014 (1.005-1.030); UROBILINOGEN URINE 0.2 E.U./dL (0.2-1.0)
[2021-09-14 08:45] LABS: *BARBITURATES SCREEN URINE NEGATIVE (NEGATIVE); *BENZODIAZEPINES SCREEN URINE NEGATIVE (NEGATIVE); *COCAINE SCREEN URINE NEGATIVE (NEGATIVE)
[2021-09-14 08:46] LABS: *AMPHETAMINES SCREEN URINE NEGATIVE (NEGATIVE); CANNABINOID URINE SCREEN NEGATIVE (NEGATIVE); METHADONE URINE SCREEN NEGATIVE (NEGATIVE); OPIATES URINE SCREEN PRESUMTIVE POSITIVE (NEGATIVE); PHENCYCLIDINE URINE SCREEN NEGATIVE (NEGATIVE)
[2021-09-14] MEDS ORDERED: NALOXONE HCL 0.4MG/ML VIAL IV PRN (12:30)
[2021-09-14] MEDS: PANTOPRAZOLE SODIUM 40 MG/VIAL IV SCH ×2 (12:54→21:45)
[2021-09-14] MEDS: TRAMADOL 50MG TABLET PO PRN (12:55)
[2021-09-14] MEDS ORDERED: SODIUM BICARBONATE 100 MEQ in DEXTROSE 5% WATER 1,000 ML IV SCH (13:00)
[2021-09-14 15:56] LABS: HEMATOCRIT 18.8 % (42.0-52.0); HEMOGLOBIN 6.4 g/dL (14.0-18.0)
[2021-09-14 23:34] LABS: HEMOGLOBIN 7.1 g/dL (14.0-18.0)
[2021-09-14 23:49] LABS: HEMATOCRIT 20.7 % (42.0-52.0)
[2021-09-15] VITALS (10 sets, daily range): BP systolic 128–155; BP diastolic 63–78
[2021-09-15 00:54] LABS: HEMATOCRIT 21.6 % (42.0-52.0); HEMOGLOBIN 7.4 g/dL (14.0-18.0)
[2021-09-15 02:08] LABS: INR 1.2; PROTHROMBIN TIME 12.4 sec (9.6-11.0)
[2021-09-15 06:50] LABS: BASOPHILS % 0.5 % (0.0-2.0); EOSINOPHILS % 0.7 % (0.0-5.0); HEMATOCRIT. 25.7 % (42.0-52.0); HEMOGLOBIN. 8.9 g/dL (14.0-18.0); LYMPHOCYTES % 19.7 % (20.0-50.0); MEAN CORPUSCULAR HEMOGLOBIN 29.4 pg (28.0-32.0); MEAN CORPUSCULAR VOLUME 84.4 fL (80.0-94.0); MEAN PLATELET VOLUME 8.7 fl (7.4-10.4); MONOCYTES % 8.2 % (2.0-8.0); NEUTROPHILS % 70.9 % (40.0-76.0); PLATELET 108 x1000/uL (130-400); RED BLOOD CELL COUNT 3.05 mill/uL (4.7-6.1); RED CELL DISTRIBUTION WIDTH 13.7 % (11.6-14.6)
[2021-09-15 07:03] LABS: HEMATOCRIT 25.8 % (42.0-52.0); HEMOGLOBIN 8.9 g/dL (14.0-18.0)
[2021-09-15 07:29] LABS: PHOSPHORUS 3.6 mg/dL (2.5-4.9)
[2021-09-15] MEDS: PANTOPRAZOLE SODIUM 40 MG/VIAL IV SCH ×2 (09:11→21:00)
[2021-09-15 13:03] LABS: HEMATOCRIT 23.8 % (42.0-52.0); HEMOGLOBIN 8.3 g/dL (14.0-18.0)
[2021-09-15] MEDS: SODIUM CHLORIDE 0.9% 1,000 ML IV SCH ×2 (13:44→21:00)
[2021-09-15 17:53] LABS: HEMATOCRIT 25.2 % (42.0-52.0); HEMOGLOBIN 8.7 g/dL (14.0-18.0)
[2021-09-15] MEDS: TRAMADOL 50MG TABLET PO PRN (23:04)
[2021-09-16 00:03] LABS: BASOPHILS % 0.4 % (0.0-2.0); EOSINOPHILS % 1.8 % (0.0-5.0); HEMOGLOBIN. 9.3 g/dL (14.0-18.0); LYMPHOCYTES % 19.8 % (20.0-50.0); MEAN CORPUSCULAR HEMOGLOBIN 29.1 pg (28.0-32.0); MEAN CORPUSCULAR VOLUME 84.1 fL (80.0-94.0); MEAN PLATELET VOLUME 8.6 fl (7.4-10.4); MONOCYTES % 8.7 % (2.0-8.0); NEUTROPHILS % 69.3 % (40.0-76.0); PLATELET 123 x1000/uL (130-400); RED BLOOD CELL COUNT 3.21 mill/uL (4.7-6.1); RED CELL DISTRIBUTION WIDTH 13.6 % (11.6-14.6)
[2021-09-16 01:25] VITALS: BP 155/74
[2021-09-16 03:57] VITALS: BP 152/70
[2021-09-16] MEDS: SODIUM CHLORIDE 0.9% 1,000 ML IV SCH ×2 (06:04→16:06)
[2021-09-16 08:00] VITALS: BP 156/76
[2021-09-16] MEDS: PANTOPRAZOLE SODIUM 40 MG/VIAL IV SCH ×2 (08:13→21:30)
[2021-09-16] MEDS: ACETAMINOPHEN 325MG TABLET PO PRN (08:22)
[2021-09-16 11:44] VITALS: BP 159/74
[2021-09-16 16:00] VITALS: BP 169/89
[2021-09-16] MEDS: HYDRALAZINE 20MG/ML VIAL IV PRN (17:05)
[2021-09-16 20:00] VITALS: BP 157/75
[2021-09-16] MEDS: AMLODIPINE 5MG TABLET PO SCH (21:31)
[2021-09-17] VITALS: BP 147/78
[2021-09-17] MEDS: SODIUM CHLORIDE 0.9% 1,000 ML IV SCH (02:40)
[2021-09-17 04:00] VITALS: BP 148/83
[2021-09-17 08:00] VITALS: BP 161/62
[2021-09-17] MEDS: PANTOPRAZOLE SODIUM 40 MG/VIAL IV SCH (09:06)
[2021-09-17] MEDS: AMLODIPINE 5MG TABLET PO SCH (09:07)
[2021-09-17] MEDS: TRAMADOL 50MG TABLET PO PRN (09:07)
[2021-09-17] MEDS ORDERED: SODIUM CHLORIDE 0.45% 1,000 ML IV SCH (10:30)
[2021-09-17 11:45] LABS: BASOPHILS % 0.5 % (0.0-2.0); EOSINOPHILS % 3.1 % (0.0-5.0); HEMATOCRIT. 25.1 % (42.0-52.0); LYMPHOCYTES % 14.4 % (20.0-50.0); MEAN CORPUSCULAR HEMOGLOBIN 30.3 pg (28.0-32.0); MEAN CORPUSCULAR VOLUME 84.3 fL (80.0-94.0); MEAN PLATELET VOLUME 8.4 fl (7.4-10.4); MONOCYTES % 6.3 % (2.0-8.0); NEUTROPHILS % 75.7 % (40.0-76.0); PLATELET 118 x1000/uL (130-400); RED BLOOD CELL COUNT 2.97 mill/uL (4.7-6.1); RED CELL DISTRIBUTION WIDTH 13.9 % (11.6-14.6)
[2021-09-17 12:00] VITALS: BP 165/86
[2021-09-17] MEDS ORDERED: DOCUSATE SODIUM 250MG CAPSULE PO NR (14:15)
[2021-09-17] MEDS ORDERED: AMLO5TAB88 PO (14:23)
[2021-09-17] MEDS ORDERED: PROT40 MT (14:23)
[2021-09-17] MEDS: HYDRALAZINE 20MG/ML VIAL IV PRN (14:23)
[2021-09-17] MEDS ORDERED: DOCU-138 MT (14:23)
[2021-09-17] MEDS ORDERED: HYDR-4133 PO (14:23)
[2021-09-17 16:00] VITALS: BP 155/81
[2021-09-17 16:21] VITALS: BP 155/81
[2021-09-17] MEDS ORDERED: HYDRALAZINE HCL 10MG TABLET PO SCH (21:00)
[2021-09-18 09:07] LABS: ANTI-NUCLEAR ANTIBODIES DIRECT Negative (Negative)
== END 2021-09-17 19:04 | disposition home or self-care (01) | DRG 254 ==
LOC: ER 19:44 → MICUSO 23:53 → 6WST 09-14 09:27
PROVIDERS: ADMIT Internal Medicine; ATTEND Internal Medicine
PROC: 30233N1 Transfusion of Nonautologous Red Blood Cells into Peripheral Vein, Percutaneous Approach (ICD-10-PCS; principal; 2021-09-14)
PROC: 02HV33Z Insertion of Infusion Device into Superior Vena Cava, Percutaneous Approach (ICD-10-PCS; 2021-09-16)
PROC: B548ZZA Ultrasonography of Superior Vena Cava, Guidance (ICD-10-PCS; 2021-09-16)
DX: K92.1 Melena (principal); N17.9 Acute kidney failure, unspecified; D62 Acute posthemorrhagic anemia; E11.22 Type 2 diabetes mellitus with diabetic chronic kidney disease; D63.8 Anemia in other chronic diseases classified elsewhere; E87.5 Hyperkalemia; F17.210 Nicotine dependence, cigarettes, uncomplicated; G89.29 Other chronic pain; N18.1 Chronic kidney disease, stage 1; I12.9 Hypertensive chronic kidney disease with stage 1 through stage 4 chronic kidney disease, or unspecified chronic kidney disease; K40.90 Unilateral inguinal hernia, without obstruction or gangrene, not specified as recurrent; Z20.822 Contact with and (suspected) exposure to COVID-19; Z96.612 Presence of left artificial shoulder joint; Z86.73 Personal history of transient ischemic attack (TIA), and cerebral infarction without residual deficits; Z79.899 Other long term (current) drug therapy; F19.11 Other psychoactive substance abuse, in remission
CPT/HCPCS: 36415; 71045; 73560; 74176; 76770; 76937; 80048; 80053; 80305; 80320; 81003; 82728; 83540; 83550; 83735; 84100; 84132; 85014; 85018; 85025; 85044; 85049; 85384; 86038; 86160; 86850; 86900; 86920; 87426; 99291; C1725; C1893; C9113; J0360; J3490; J7030; J7040; J7070; P9016; G0480

== ENCOUNTER 2021-12-04 17:26 | Emergency (ER) | payer MEDICAID, OTHER ==
[~2021-12-04] VITALS: Ht 165.1 cm; Wt 67.0 kg
[~2021-12-04 17:26] MED LIST changes: -AMLO10TA80 PO; +AMLO5TAB88 PO; +DOCU-138 MT; -HYDR-4001 PO; +HYDR-4133 PO; -HYDR100T26 MT; +PROT40 MT; -THIA100T72 PO
[2021-12-04] MEDS ORDERED: ACETAMINOPHEN 325MG TABLET PO ONE (18:15)
[2021-12-04] MEDS ORDERED: TOPUD MT (19:40)
[2021-12-05 03:47] VITALS: BP 122/88
== END 2021-12-04 19:50 | disposition home or self-care (01) ==
LOC: ER 17:26 → SUPCPDRO 12-05 10:14
DX: M25.511 Pain in right shoulder (principal); E11.9 Type 2 diabetes mellitus without complications; I10 Essential (primary) hypertension
CPT/HCPCS: 73030; 99283

== ENCOUNTER 2022-03-20 10:14 | Inpatient (IN) | payer MEDICAID ==
[~2022-03-20] VITALS: Ht 165.1 cm; Wt 60.8 kg
[~2022-03-20 10:14] MED LIST changes: +TOPUD MT
[2022-03-20 12:09] LABS: CHLORIDE 107 mEq/L (98-107)
[2022-03-20 12:13] LABS: ETHANOL BLOOD < 10 mg/dL
[2022-03-20 12:20] LABS: EOSINOPHILS % 2.8 % (0.0-5.0); HEMATOCRIT. 28.7 % (42.0-52.0); HEMOGLOBIN. 9.7 g/dL (14.0-18.0); LYMPHOCYTES % 14.8 % (20.0-50.0); MEAN CORPUSCULAR HEMOGLOBIN 29.9 pg (28.0-32.0); MEAN PLATELET VOLUME 7.9 fl (7.4-10.4); MONOCYTES % 8.8 % (2.0-8.0); NEUTROPHILS % 72.6 % (40.0-76.0); PLATELET 218 x1000/uL (130-400); RED BLOOD CELL COUNT 3.22 mill/uL (4.7-6.1); RED CELL DISTRIBUTION WIDTH 14.8 % (11.6-14.6)
[2022-03-20 12:45] LABS: PROTHROMBIN TIME 10.3 sec (9.6-11.0)
[2022-03-20] MEDS ORDERED: MORPHINE SULFATE 2 MG/ML CPJ (NOT FOR IM USE) IV PRN (13:15)
[2022-03-20] MEDS ORDERED: HYDROCODONE/ACETAMINOPHEN 5/325MG TABLET PO PRN (13:15)
[2022-03-20] MEDS ORDERED: ONDANSETRON HCL 4MG/2ML INJ IV PRN (13:15)
[2022-03-20] MEDS ORDERED: DIPHENHYDRAMINE 50MG/ML VIAL IV PRN (13:15)
[2022-03-20] MEDS ORDERED: NALOXONE HCL 0.4MG/ML VIAL IV PRN (13:15)
[2022-03-20] MEDS ORDERED: CLONIDINE 0.1MG TABLET PO PRN (13:15)
[2022-03-20] MEDS: LISINOPRIL 20MG TABLET PO SCH (13:15)
[2022-03-20] MEDS: ENOXAPARIN 30MG/0.3ML SYR SUBCUT SCH (14:00)
[2022-03-20 16:00] VITALS: BP 136/78
[2022-03-20 16:09] LABS: HEPATITIS B SURFACE ANTIGEN NEGATIVE
[2022-03-20 17:00] VITALS: BP 136/78
[2022-03-20] MEDS ORDERED: FURO40TA5 MT (18:20)
[2022-03-20] MEDS ORDERED: HYDR-4134 MT (18:20)
[2022-03-20] MEDS ORDERED: FOLI1TAB87 MT (18:20)
[2022-03-20 20:12] VITALS: BP 143/83
[2022-03-21 00:23] VITALS: BP 144/78
[2022-03-21 04:00] VITALS: BP 140/78
[2022-03-21 08:00] VITALS: BP 142/70
[2022-03-21] MEDS: LISINOPRIL 20MG TABLET PO SCH (08:44)
[2022-03-21] MEDS: THIAMINE HCL 100MG TABLET PO SCH (08:45)
[2022-03-21 12:00] VITALS: BP 142/73
[2022-03-21] MEDS: ENOXAPARIN 30MG/0.3ML SYR SUBCUT SCH (13:03)
[2022-03-21 16:00] VITALS: BP 101/65
[2022-03-21 20:00] VITALS: BP 91/47
[2022-03-22] VITALS: BP 90/48
[2022-03-22 04:00] VITALS: BP 91/55
[2022-03-22 06:53] LABS: BASOPHILS % 0.6 % (0.0-2.0); EOSINOPHILS % 6.9 % (0.0-5.0); HEMATOCRIT. 28.6 % (42.0-52.0); HEMOGLOBIN. 9.7 g/dL (14.0-18.0); LYMPHOCYTES % 19.4 % (20.0-50.0); MEAN CORPUSCULAR HEMOGLOBIN 29.9 pg (28.0-32.0); MEAN CORPUSCULAR VOLUME 88.6 fL (80.0-94.0); MONOCYTES % 11.3 % (2.0-8.0); NEUTROPHILS % 61.8 % (40.0-76.0); PLATELET 181 x1000/uL (130-400); RED BLOOD CELL COUNT 3.23 mill/uL (4.7-6.1)
[2022-03-22 08:00] VITALS: BP 90/68
[2022-03-22] MEDS: THIAMINE HCL 100MG TABLET PO SCH (08:47)
[2022-03-22] MEDS: LISINOPRIL 20MG TABLET PO SCH (09:00)
[2022-03-22 12:00] VITALS: BP 110/79
[2022-03-22] MEDS: ENOXAPARIN 30MG/0.3ML SYR SUBCUT SCH (14:40)
[2022-03-22 16:00] VITALS: BP 90/59
[2022-03-22 20:00] VITALS: BP 104/62
[2022-03-23] VITALS: BP 102/62
[2022-03-23 04:00] VITALS: BP 101/68
[2022-03-23 08:00] VITALS: BP 116/66
[2022-03-23] MEDS: FOLIC ACID/VITAMIN B COMP W-C TABLET PO SCH (09:00)
[2022-03-23] MEDS: THIAMINE HCL 100MG TABLET PO SCH (09:00)
[2022-03-23 11:43] VITALS: BP 105/61
[2022-03-23] MEDS: ENOXAPARIN 30MG/0.3ML SYR SUBCUT SCH (14:09)
[2022-03-23 16:00] VITALS: BP 141/77
[2022-03-23 20:33] VITALS: BP 133/65
[2022-03-24 01:00] VITALS: BP 126/71
[2022-03-24 04:00] VITALS: BP 118/73
[2022-03-24 08:00] VITALS: BP 154/80
[2022-03-24] MEDS: THIAMINE HCL 100MG TABLET PO SCH (08:44)
[2022-03-24] MEDS: FOLIC ACID/VITAMIN B COMP W-C TABLET PO SCH (08:44)
[2022-03-24 11:54] VITALS: BP 115/65
[2022-03-24] MEDS: ENOXAPARIN 30MG/0.3ML SYR SUBCUT SCH (14:09)
[2022-03-24 16:00] VITALS: BP 142/82
[2022-03-24 20:00] VITALS: BP 126/69
[2022-03-24] MEDS: ACETAMINOPHEN 325MG TABLET PO PRN (20:59)
[2022-03-25] VITALS: BP 135/74
[2022-03-25 04:00] VITALS: BP 137/72
[2022-03-25 06:49] LABS: BASOPHILS % 1.3 % (0.0-2.0); EOSINOPHILS % 7.8 % (0.0-5.0); HEMATOCRIT. 29.8 % (42.0-52.0); HEMOGLOBIN. 9.9 g/dL (14.0-18.0); LYMPHOCYTES % 22.1 % (20.0-50.0); MEAN CORPUSCULAR HEMOGLOBIN 29.9 pg (28.0-32.0); MEAN CORPUSCULAR VOLUME 89.7 fL (80.0-94.0); MEAN PLATELET VOLUME 8.4 fl (7.4-10.4); MONOCYTES % 10.2 % (2.0-8.0); NEUTROPHILS % 58.6 % (40.0-76.0); PLATELET 177 x1000/uL (130-400); RED BLOOD CELL COUNT 3.32 mill/uL (4.7-6.1); RED CELL DISTRIBUTION WIDTH 14.8 % (11.6-14.6)
[2022-03-25 08:00] VITALS: BP 154/78
[2022-03-25] MEDS: FOLIC ACID/VITAMIN B COMP W-C TABLET PO SCH (09:20)
[2022-03-25] MEDS: THIAMINE HCL 100MG TABLET PO SCH (09:20)
[2022-03-25 12:00] VITALS: BP 127/72
[2022-03-25] MEDS: ENOXAPARIN 30MG/0.3ML SYR SUBCUT SCH (13:23)
[2022-03-25 16:00] VITALS: BP 119/70
[2022-03-25 20:00] VITALS: BP 155/74
[2022-03-26] VITALS: BP 140/77
[2022-03-26 04:00] VITALS: BP 141/79
[2022-03-26 06:21] LABS: BASOPHILS % 1.1 % (0.0-2.0); EOSINOPHILS % 7.5 % (0.0-5.0); HEMATOCRIT. 27.8 % (42.0-52.0); HEMOGLOBIN. 9.1 g/dL (14.0-18.0); LYMPHOCYTES % 21.3 % (20.0-50.0); MEAN CORPUSCULAR HEMOGLOBIN 29.4 pg (28.0-32.0); MEAN CORPUSCULAR VOLUME 90.1 fL (80.0-94.0); MEAN PLATELET VOLUME 8.8 fl (7.4-10.4); NEUTROPHILS % 60.1 % (40.0-76.0); PLATELET 170 x1000/uL (130-400); RED BLOOD CELL COUNT 3.09 mill/uL (4.7-6.1); RED CELL DISTRIBUTION WIDTH 14.9 % (11.6-14.6)
[2022-03-26 08:00] VITALS: BP 165/74
[2022-03-26] MEDS: THIAMINE HCL 100MG TABLET PO SCH (08:33)
[2022-03-26] MEDS: FOLIC ACID/VITAMIN B COMP W-C TABLET PO SCH (08:33)
[2022-03-26 12:00] VITALS: BP 122/71
[2022-03-26] MEDS: ENOXAPARIN 30MG/0.3ML SYR SUBCUT SCH (15:52)
[2022-03-26 16:00] VITALS: BP 149/77
[2022-03-26 20:00] VITALS: BP 128/53
[2022-03-27] VITALS (15 sets, daily range): BP systolic 136–170; BP diastolic 61–83
[2022-03-27] MEDS: FOLIC ACID/VITAMIN B COMP W-C TABLET PO SCH (09:07)
[2022-03-27] MEDS: THIAMINE HCL 100MG TABLET PO SCH (09:07)
[2022-03-27] MEDS: ACETAMINOPHEN 325MG TABLET PO PRN (12:05)
[2022-03-27] MEDS ORDERED: CEFAZOLIN 1000MG PREMIX 50 ML IV NR (12:30)
[2022-03-27] MEDS ORDERED: FENTANYL CITRATE/PF 50MCG/ML 2ML VIAL ONE (12:42)
[2022-03-27] MEDS ORDERED: FENTANYL CITRATE/PF 50MCG/ML 2ML VIAL IV ONE (13:45)
[2022-03-27] MEDS: ENOXAPARIN 30MG/0.3ML SYR SUBCUT SCH (15:14)
== END 2022-03-27 18:55 | disposition home or self-care (01) | DRG 470 ==
LOC: ER 10:38 → 7WST 11:23 → EDBEDREQ 11:27 → EDBEDREQSVC 11:27 → EDBEDREQTM 11:27 → EDBEDREQSVC 15:10
PROVIDERS: ADMIT Internal Medicine Nephrology; ATTEND Internal Medicine Nephrology
PROC: 5A1D70Z Performance of Urinary Filtration, Intermittent, Less than 6 Hours Per Day (ICD-10-PCS; principal; 2022-03-20)
PROC: 05HM33Z Insertion of Infusion Device into Right Internal Jugular Vein, Percutaneous Approach (ICD-10-PCS; 2022-03-20)
PROC: B5131ZA Fluoroscopy of Right Jugular Veins using Low Osmolar Contrast, Guidance (ICD-10-PCS; 2022-03-20)
PROC: B543ZZA Ultrasonography of Right Jugular Veins, Guidance (ICD-10-PCS; 2022-03-20)
PROC: 5A1D70Z Performance of Urinary Filtration, Intermittent, Less than 6 Hours Per Day (ICD-10-PCS; 2022-03-21)
PROC: 5A1D70Z Performance of Urinary Filtration, Intermittent, Less than 6 Hours Per Day (ICD-10-PCS; 2022-03-24)
PROC: 0JH63XZ Insertion of Tunneled Vascular Access Device into Chest Subcutaneous Tissue and Fascia, Percutaneous Approach (ICD-10-PCS; 2022-03-27)
PROC: 02HV33Z Insertion of Infusion Device into Superior Vena Cava, Percutaneous Approach (ICD-10-PCS; 2022-03-27)
PROC: B5181ZA Fluoroscopy of Superior Vena Cava using Low Osmolar Contrast, Guidance (ICD-10-PCS; 2022-03-27)
DX: I12.0 Hypertensive chronic kidney disease with stage 5 chronic kidney disease or end stage renal disease (principal); N18.6 End stage renal disease; E11.22 Type 2 diabetes mellitus with diabetic chronic kidney disease; D63.8 Anemia in other chronic diseases classified elsewhere; E87.6 Hypokalemia; Z20.822 Contact with and (suspected) exposure to COVID-19; K43.9 Ventral hernia without obstruction or gangrene; F10.20 Alcohol dependence, uncomplicated; Z79.899 Other long term (current) drug therapy; Z99.2 Dependence on renal dialysis; Z91.15 Patient's noncompliance with renal dialysis
CPT/HCPCS: 36415; 36556; 36558; 36589; 71045; 76937; 77001; 80048; 80320; 82140; 85025; 86705; 86709; 86803; 87340; 87426; 93005; 99152; 99153; 99285; C1750; C1752; C1769; C1887; C1893; C9803; J0690; J1650; J3010; G0480; G0500

== ENCOUNTER 2022-03-30 13:16 | Emergency (ER) | payer MEDICAID ==
[~2022-03-30] VITALS: Ht 165.1 cm; Wt 57.0 kg
[~2022-03-30 13:16] MED LIST changes: +FOLI1TAB87 MT; +FURO40TA5 MT; -HYDR-4133 PO; +HYDR-4134 MT
[2022-03-30 13:22] VITALS: BP 155/101
== END 2022-03-30 16:24 | disposition home or self-care (01) ==
LOC: ER 13:23
DX: Z48.00 Encounter for change or removal of nonsurgical wound dressing (principal); I12.0 Hypertensive chronic kidney disease with stage 5 chronic kidney disease or end stage renal disease; E11.22 Type 2 diabetes mellitus with diabetic chronic kidney disease; N18.6 End stage renal disease; Z99.2 Dependence on renal dialysis
CPT/HCPCS: 99281; Z7610

== ENCOUNTER 2022-08-17 15:12 | Emergency (ER) | payer MEDICAID, OTHER ==
[~2022-08-17] VITALS: Ht 160 cm; Wt 60.0 kg
[2022-08-17 18:54] VITALS: BP 138/97
== END 2022-08-17 18:56 | disposition home or self-care (01) ==
LOC: ER 16:28
DX: Z48.01 Encounter for change or removal of surgical wound dressing (principal); I12.0 Hypertensive chronic kidney disease with stage 5 chronic kidney disease or end stage renal disease; E11.22 Type 2 diabetes mellitus with diabetic chronic kidney disease; N18.6 End stage renal disease; Z99.2 Dependence on renal dialysis; Z89.429 Acquired absence of other toe(s), unspecified side
CPT/HCPCS: 99281; Z7610

== ENCOUNTER 2022-11-03 00:41 | Emergency (ER) | payer OTHER ==
[~2022-11-03] VITALS: Ht 165.1 cm; Wt 78.0 kg
[2022-11-03 00:48] VITALS: BP 134/72
[2022-11-03] MEDS ORDERED: ACETAMINOPHEN 325MG TABLET PO ONE (01:15)
[2022-11-03] MEDS ORDERED: ACETAMINOPHEN 325MG TABLET PO NR (04:00)
== END 2022-11-03 09:54 | disposition home or self-care (01) ==
LOC: ER 00:58
DX: M19.071 Primary osteoarthritis, right ankle and foot (principal); I12.0 Hypertensive chronic kidney disease with stage 5 chronic kidney disease or end stage renal disease; E11.22 Type 2 diabetes mellitus with diabetic chronic kidney disease; N18.6 End stage renal disease; Z99.2 Dependence on renal dialysis; Z79.899 Other long term (current) drug therapy
CPT/HCPCS: 73630; 99283

== ENCOUNTER 2022-12-13 16:30 | Emergency (ER) | payer OTHER ==
[~2022-12-13] VITALS: Ht 165.1 cm; Wt 61.0 kg
[2022-12-13 16:32] VITALS: BP 119/70; PULSE 67; RESP 18; TEMP 98.4; O2SAT 100
== END 2022-12-13 18:55 | disposition home or self-care (01) ==
LOC: ER 16:30
DX: M25.512 Pain in left shoulder (principal); I12.0 Hypertensive chronic kidney disease with stage 5 chronic kidney disease or end stage renal disease; E11.22 Type 2 diabetes mellitus with diabetic chronic kidney disease; N18.6 End stage renal disease; Z99.2 Dependence on renal dialysis; Z86.73 Personal history of transient ischemic attack (TIA), and cerebral infarction without residual deficits; Z79.899 Other long term (current) drug therapy
CPT/HCPCS: 73030; 99283

== ENCOUNTER 2023-05-09 20:15 | Emergency (ER) | payer OTHER ==
[~2023-05-09] VITALS: Ht 165.1 cm; Wt 58.0 kg
[2023-05-09 20:42] VITALS: BP 170/83; PULSE 85; RESP 18; TEMP 98.3; O2SAT 99
[2023-05-09] MEDS ORDERED: ACETAMINOPHEN 325MG TABLET PO ONE (22:45)
[2023-05-10] MEDS ORDERED: IBUPROFEN 800MG TABLET PO ONE (00:30)
== END 2023-05-10 01:49 | disposition home or self-care (01) ==
LOC: ER 20:15
DX: M71.21 Synovial cyst of popliteal space [Baker], right knee (principal)
CPT/HCPCS: 73560; 73590; 73600; 93971; 99284

== ENCOUNTER 2023-10-11 12:27 | Emergency (ER) | payer MEDICAID, OTHER ==
[~2023-10-11] VITALS: Ht 165.1 cm; Wt 54.0 kg
[~2023-10-11 12:27] MED LIST changes: -HYDR-4134 MT; +HYDR25TA78 MT
[2023-10-11 12:52] VITALS: BP 169/101; PULSE 89; RESP 16; TEMP 98.8; O2SAT 99
[2023-10-11 14:15] LABS: BASOPHILS % 1.1 % (0.0-2.0); HEMOGLOBIN. 14.7 g/dL (14.0-18.0); LYMPHOCYTES % 28.8 % (20.0-50.0); MEAN CORPUSCULAR HEMOGLOBIN 30.9 pg (28.0-32.0); MEAN CORPUSCULAR HGB CONC 33.4 g/dL (31.0-37.0); MEAN CORPUSCULAR VOLUME 92.6 fL (80.0-94.0); MEAN PLATELET VOLUME 7.7 fl (7.4-10.4); NEUTROPHILS % 58.1 % (40.0-76.0); PLATELET 191 x1000/uL (130-400); RED BLOOD CELL COUNT 4.75 mill/uL (4.7-6.1); RED CELL DISTRIBUTION WIDTH 14.9 % (11.6-14.6); WHITE BLOOD COUNT 5.2 x1000/uL (4.5-11.0)
[2023-10-11 14:18] LABS: INR 0.9; PROTHROMBIN TIME 10.5 sec (9.6-11.0)
[2023-10-11 14:24] LABS: ALANINE AMINOTRANSFERASE 20 IU/L (10-49); ALBUMIN 4.2 g/dL (3.2-4.8); ASPARTATE AMINOTRANSFERASE 25 IU/L (<34); BILIRUBIN TOTAL 0.3 mg/dL (0.1-1.0); CALCIUM 9.2 mg/dL (8.7-10.4); CARBON DIOXIDE 28 mEq/L (21-32); CHLORIDE 102 mEq/L (98-107); GLUCOSE 151 mg/dL (70-105); POTASSIUM 4.3 mEq/L (3.5-5.1); PROTEIN TOTAL 7.4 g/dL (6.0-8.3); SODIUM 139 mEq/L (136-145); UREA NITROGEN BLOOD 27 mg/dL (9-23)
== END 2023-10-11 15:00 | disposition home or self-care (01) ==
LOC: ER 12:27
DX: B02.9 Zoster without complications (principal); I10 Essential (primary) hypertension; Z79.899 Other long term (current) drug therapy; Z98.890 Other specified postprocedural states
CPT/HCPCS: 36415; 80053; 85025; 86850; 86900; 99283